=== PATIENT | male | born 1945 | race Caucasian/White ===

== ENCOUNTER → 2016-06-04 | Outpatient (CLI) | payer MEDICARE, OTHER ==
[2016-04-17 09:31] VITALS: BP 99/78
[~2016-06-04] MED LIST: FERR-26 PO; GINK60CA7 PO; HYDR-971 PO; NAPR220T70 PO; OMEG1CAP16 PO; OXYC-323 PO; WARF1TAB PO; ZINC30CA PO; [UNRECOGNIZED DRUG - CODE] PO
--- NOTE | 2016-06-04 18:59 | CARD ---
APPROVED REPORT EXAM: Two-dimensional and M-mode echocardiogram with Doppler and color Doppler. Other Information Quality : GoodHR: 74bpm Rhythm : NSR INDICATION Arrhythmia 2D DIMENSIONS RVDd2.7 (2.9-3.5cm)Left Atrium(2D)3.4 (1.6-4.0cm) IVSd0.9 (0.7-1.1cm)Aortic Root(2D)3.3 (2.0-3.7cm) LVDd4.5 (3.9-5.9cm)LVOT Diameter2.3 (1.8-2.4cm) PWd1.0 (0.7-1.1cm)LVDs2.9 (2.5-4.0cm) FS (%) 35.0 %SV60.3 ml LVEF(%)65.0 (>50%) Aortic Valve AoV Peak Сергей.166.0cm/sLVOT Peak Сергей.106.7cm/s VICKI (VMAX)2.71cm2 Mitral Valve MV E Ghmqjmfr61.9cm/sMV E Peak Gr.3mmHg MV DECEL HUSN027xrNP A Wwrgubco91.3cm/s MV E Mean Gr.1mmHgE/A Ratio0.7 MV A [id number] Pulmonary Valve PV Peak Twpnnmnr614.6cm/s Pulmonary Vein S1 Grjlwkbc68.6cm/sD2 Qblkqjgp53.8cm/s PVa qboapdwz60knox LEFT VENTRICLE The left ventricle is normal size. There is normal left ventricular wall thickness. The left ventricu lar systolic function is normal and the ejection fraction is within normal range. The left ventricula r global ejection fraction was estimated to be 65% There is normal LV segmental wall motion. Tissue D oppler imaging reveals mild left ventricular diastolic dysfunction. RIGHT VENTRICLE The right ventricle is normal size. There is normal right ventricular wall thickness. The right ventr icular systolic function is normal. ATRIA The left atrium size is normal. The right atrium size is normal. The interatrial septum is intact wit h no evidence for an atrial septal defect or patent foramen ovale as noted on 2-D or Doppler imaging. AORTIC VALVE The aortic valve is mildly sclerotic. The aortic valve is trileaflet. Doppler and Color Flow revealed no significant aortic regurgitation. There is no significant aortic valvular stenosis. MITRAL VALVE The mitral valve leaflets are thickened. There is no mitral valve stenosis. Doppler and Color Flow re vealed no mitral valve regurgitation noted. TRICUSPID VALVE The tricuspid valve is normal in structure Doppler and Color Flow revealed trace tricuspid regurgitat ion. There is no tricuspid valve stenosis. PULMONIC VALVE The pulmonary valve is normal in structure Doppler and Color Flow revealed trace pulmonic valvular re gurgitation. There is no pulmonic valvular stenosis. GREAT VESSELS The aortic root is normal in size. The ascending aorta is Mildly dilated. The pulmonary artery is nor mal. The IVC is normal in size and collapses >50% with inspiration. PERICARDIAL EFFUSION There is no pleural effusion. No significant pericardial effusion was seen Critical Notification Critical Value: No <Conclusion> The left ventricular systolic function is normal and the ejection fraction is within normal range. Th e left ventricular global ejection fraction was estimated to be 65% The left atrium size is normal. The right atrium size is normal. The aortic valve is mildly sclerotic. The aortic valve is trileaflet. The mitral valve leaflets are thickened. Doppler and Color Flow revealed no mitral valve regurgitation noted. Doppler and Color Flow revealed trace tricuspid regurgitation. Doppler and Color Flow revealed trace pulmonic valvular regurgitation. The ascending aorta is Mildly dilated. No significant pericardial effusion was seen
== END | disposition home or self-care (01) ==
LOC: ECHO 10:17
PROVIDERS: ATTEND Nurse Practitioner Adult Health
DX: C83.30 Diffuse large B-cell lymphoma, unspecified site (principal); I07.1 Rheumatic tricuspid insufficiency; I37.1 Nonrheumatic pulmonary valve insufficiency; I35.8 Other nonrheumatic aortic valve disorders; I77.819 Aortic ectasia, unspecified site
CPT/HCPCS: 93306

== ENCOUNTER 2016-06-13 06:41 | Day surgery (SDC) | payer MEDICARE, OTHER ==
[~2016-06-13] VITALS: Ht 165.1 cm; Wt 89.4 kg
[~2016-06-13 06:41] MED LIST changes: +ACETAMINOPHEN INTRAVENOUS 100 ML IV ONE; +ASCO500T2 PO; +BEE550CA PO; +CEFAZOLIN 2GM PREMIX 50 ML IV PRN; +GREE250C PO; +MAGN400C PO
[2016-06-13] MEDS ORDERED: MORPHINE SULFATE 2 MG/ML DISP.SYRIN. IV PRN (07:00)
[2016-06-13] MEDS ORDERED: LIDOCAINE 1% 1 ML SYRINGE. ID PRN (07:00)
[2016-06-13] MEDS ORDERED: IV RINGERS,LACTATED 1000ML 1,000 ML IV SCH (07:00)
[2016-06-13] MEDS ORDERED: ONDANSETRON PF 4 MG/2 ML VIAL. IV PRN (07:00)
[2016-06-13] MEDS ORDERED: PROCHLORPERAZINE 10 MG/2 ML VIAL. IV PRN (07:00)
[2016-06-13] MEDS ORDERED: FENTANYL PF 100 MCG/2 ML VIAL. IV PRN ×2 (07:00)
[2016-06-13] MEDS ORDERED: HYDROMORPHONE 2 MG/ML VIAL. IV PRN (07:00)
[2016-06-13] MEDS ORDERED: BUPIVACAINE 0.25% 50 ML VIAL. ONE (07:16)
[2016-06-13] MEDS ORDERED: HEPARIN for IV BOLUS 10,000 UNIT/10 ML VIAL. ONE (07:16)
[2016-06-13] MEDS ORDERED: HEPARIN PF 500 UNIT/5 ML DISP.SYRIN. IV ONE ×3 (07:16→07:17)
[2016-06-13] MEDS ORDERED: PROPOFOL 20 ML IV ONE ×2 (07:33→07:35)
[2016-06-13] MEDS ORDERED: MIDAZOLAM HCL 2 MG/2 ML VIAL. ONE (07:33)
[2016-06-13] MEDS ORDERED: FENTANYL PF 100 MCG/2 ML VIAL. ONE (07:33)
--- NOTE | 2016-06-13 08:40 | PDOC ---
BRIEF OPERATIVE NOTE Date: Jun 13, 2016 Pre-Op Diagnosis Lymphoma Post-Op Diagnosis Same Procedure Performed Port-a-cath Placement Surgeon Ebenezer Anesthesia Type: MAC Blood Loss 5ml Specimens Obtained None Findings As above Complications None MAMIE EDWARDS MD Jun 13, 2016 08:40
--- NOTE | 2016-06-13 08:41 | DISCH ---
DISCHARGE INSTRUCTIONS Condition on Discharge Condition on Discharge: Stable Activity After Discharge Activity Instructions for Disc: Activity as tolerated Diet after Discharge Diet after Discharge: Regular Wound Incision Care Other wound/incision instructi: May shower in 24 hours Contacting the after DC Call your doctor for: If your condition worsens Follow-Up Follow up with: Dr Edwards in 2 weeks MAMIE EDWARDS MD Jun 13, 2016 08:41
[2016-06-13] MEDS ORDERED: OXYC-323 PO (09:06)
[2016-06-13 09:26] VITALS: BP 136/71
--- NOTE | 2016-06-13 09:59 | OP ---
DATE OF SURGERY: 06/13/2016 PREOPERATIVE DIAGNOSIS: Lymphoma. POSTOPERATIVE DIAGNOSIS: Lymphoma. PROCEDURE: Port-A-Cath placement, left subclavian. SURGEON: Dave Edwards MD INDICATIONS: The patient is a 71-year-old gentleman who was recently diagnosed with lymphoma, needing long-term IV access for chemotherapy. Procedure of Port-A-Cath placement was explained to the patient in detail. Risks and benefits were also discussed including bleeding and infection. Alternatives of the procedure were also discussed with the patient who seemed to understand and gave verbal and written consent to have the procedure performed. DESCRIPTION OF PROCEDURE: The patient was taken to the operating room and placed in the supine position. IV sedation was initiated by anesthesia. Once the patient was appropriately sedated, his neck and chest were prepped and draped in the usual sterile fashion using ChloraPrep. An area over the deltopectoral groove on the left side was injected with 0.25% Marcaine plain. Once this was injected, incision was made with 15 blade scalpel. This was carried down through the subcutaneous tissues down to the cephalic vein, which was controlled proximally and distally with silk LigaSure. The vein was opened partially with 11 blade scalpel and a Seldinger wire was placed under fluoroscopy, which passed via the cephalic into subclavian, into the superior vena cava. At this point, the peel-away dilator was placed over the wire under fluoroscopy. The dilator was removed and the catheter was placed through the peel-away, which was then removed. The port was then attached to the catheter. A pocket was made in the anterior chest with blunt and sharp dissection. The port was then sewn into place with 3-0 Prolene. The port was then accessed, which showed good blood return and was easily flushed with heparin saline. The port was then packed with Hep-Lock of 5000 units per mL of 2 mL. The wound was then closed with 2 layers, deep layer with running 3-0 Vicryl and the skin was reapproximated with 4-0 subcuticular Monocryl. Mastisol, Steri-Strips, 4 x 4's and Medipore tape were applied as dressing. The patient was awakened from sedation and taken to recovery in stable condition. All sponge, instrument counts listed as correct. Estimated blood loss 5 mL. DAVE EDWARDS MD DR: ANNE MARIE/rossi JOB#: [id number] / [id number] MAHOGANY Castillo
== END 2016-06-13 09:55 | disposition home or self-care (01) ==
LOC: SURG 06:41
PROVIDERS: ATTEND Surgery
DX: C85.90 Non-Hodgkin lymphoma, unspecified, unspecified site (principal); E66.9 Obesity, unspecified; M19.90 Unspecified osteoarthritis, unspecified site; F10.99 Alcohol use, unspecified with unspecified alcohol-induced disorder; Z87.891 Personal history of nicotine dependence
CPT/HCPCS: 36556; J0131; J0690; J2250; J2704; J3010; J3490; A4215; C1788

== ENCOUNTER → 2016-08-20 | Outpatient (CLI) | payer OTHER ==
[~2016-08-20] MED LIST changes: -ACETAMINOPHEN INTRAVENOUS 100 ML IV ONE; -CEFAZOLIN 2GM PREMIX 50 ML IV PRN
--- NOTE | 2016-08-20 11:05 | CARD ---
APPROVED REPORT EXAM: Two-dimensional and M-mode echocardiogram with Doppler and color Doppler. Other Information Quality : GoodHR: 81bpm Rhythm : NSR INDICATION Post chemo treatment 2D DIMENSIONS RVDd2.6 (2.9-3.5cm)Left Atrium(2D)3.0 (1.6-4.0cm) IVSd1.0 (0.7-1.1cm)Aortic Root(2D)3.5 (2.0-3.7cm) LVDd5.2 (3.9-5.9cm)LVOT Diameter2.3 (1.8-2.4cm) PWd1.0 (0.7-1.1cm)LVDs3.4 (2.5-4.0cm) FS (%) 34.0 %SV81.7 ml LVEF(%)62.5 (>50%) LEFT VENTRICLE The left ventricle is normal size. There is normal left ventricular wall thickness. The left ventricu lar systolic function is normal and the ejection fraction is within normal range. The Ejection Fracti on is 60-65%. There is normal LV segmental wall motion. Left ventricular diastolic function was not a ssessed at exam time. RIGHT VENTRICLE The right ventricle is normal size. There is normal right ventricular wall thickness. The right ventr icular systolic function is normal. ATRIA The left atrium size is normal. The right atrium size is normal. The atrial septum was not assessed a t exam time. AORTIC VALVE The aortic valve is mildly sclerotic. The aortic valve is trileaflet. There is no significant aortic valvular stenosis. MITRAL VALVE Mitral annular calcification is mild. The mitral valve leaflets are thickened. There is no evidence o f mitral valve prolapse. There is no mitral valve stenosis. TRICUSPID VALVE The tricuspid valve is not well visualized. PULMONIC VALVE The pulmonic valve is not well visualized. GREAT VESSELS The aortic root is normal in size. The ascending aorta is normal in size. The IVC was not assessed at exam time. PERICARDIAL EFFUSION There is no evidence of significant pericardial effusion. Critical Notification Critical Value: No <Conclusion> The left ventricular systolic function is normal and the ejection fraction is within normal range. Th e Ejection Fraction is 60-65%. There is normal LV segmental wall motion.
== END | disposition home or self-care (01) ==
LOC: ECHO 07:42
PROVIDERS: ATTEND Internal Medicine Hematology & Oncology
DX: C83.30 Diffuse large B-cell lymphoma, unspecified site (principal); T14.8 Other injury of unspecified body region
CPT/HCPCS: 93308

== ENCOUNTER → 2016-08-28 | Outpatient (CLI) | payer OTHER ==
--- NOTE | 2016-08-28 11:34 | RAD ---
EXAM: Dual modality PET/CT. HISTORY: Lymphoma restaging. TECHNIQUE: PET images of the body were obtained from the skull base to the proximal thighs following the intravenous administration of 12.2 mCi F 18 fluorodeoxyglucose (FDG).. CT images were obtained for attenuation correction purposes. The blood glucose prior to tracer administration was 105 mg/dL. One or more of the following individualized dose reduction techniques were utilized for this examination: 1. Automated exposure control. 2. Adjustment of the mA and/or kV according to patient size. 3. Use of iterative reconstruction technique. COMPARISON: 05/15/2016. FINDINGS: There is increased tracer activity maximum SUV of 5.0 posterior to the right glenohumeral joint, likely degenerative/inflammatory in etiology. There is increased tracer activity within the vocal cords, likely physiologic in etiology. There is tracer activity within maximum SUV of 2.6 within a nonenlarged right paratracheal lymph node. There is diffusely heterogeneous activity within the liver and vertebral bodies. There is expected activity within the renal collecting system. There has been significant interval decrease in the size and radiotracer activity associated with left iliac and inguinal lymph nodes compared to the prior study. The residual lymph nodes nodes demonstrate a maximum SUV of 2.7. There is mild activity around the periphery of a 3.8 cm left inguinal lesion, likely a treated lymph node or seroma status post lymph node biopsy. The CT portion of the exam demonstrates mild cardiomegaly and ectasia of the aortic arch. No pathologically enlarged mediastinal or hilar lymph node is seen. There are left maxillary sinus mucous retention cysts. There is posterior dependent atelectasis. There are few calcified granulomas. There is a 9 mm pleural-based nodule along the anterior right upper thorax and focal pleural thickening or an elongated pleural-based nodule measuring 2.1 cm along the anterior superior right thorax. There is also a 1.7 cm pleural-based nodular opacity within the posterior inferior left thorax. No hepatic lesion is seen. The collar, pancreas, spleen and adrenal glands are unremarkable. There are punctate nonobstructing renal stones. No abnormally thickened or dilated loop of bowel is seen. There is distal colonic diverticulosis without diverticulitis. There is urinary bladder wall thickening. There is prostatomegaly. There is stranding throughout the root of the mesentery. No pathologically enlarged lymph node is seen. There are pars defects with associated anterolisthesis at the lumbosacral junction. There are few benign bone islands. No suspicious osseous lesion is seen. IMPRESSION: 1. Significant interval therapy response. The previously demonstrated radiotracer avid left iliac and inguinal lymph nodes are now within normal lives in size and demonstrate a maximum SUV of 2.7. There is no evidence of progressive neoplasm. 2. Stable increased activity posterior to the right glenohumeral joint, likely degenerative/inflammatory in etiology. There is also suspected physiologic activity within the vocal cords. 3. Diffusely heterogeneous activity throughout the vertebral column. There is no CT correlate. This can be seen with bone marrow stimulation agents. 4. Multiple pleural-based nodular opacities within the right thorax, stable in appearance. The absence of increased tracer activity and stability favors benignity. However, continued attention at the time of follow-up is recommended. 5. Please refer to the findings section of the report for additional non-PET findings.
== END | disposition home or self-care (01) ==
LOC: PETSC 07:51
PROVIDERS: ATTEND Internal Medicine Hematology & Oncology
DX: C83.30 Diffuse large B-cell lymphoma, unspecified site (principal); T14.8 Other injury of unspecified body region
CPT/HCPCS: 78815; A9552

== ENCOUNTER → 2017-01-01 | Outpatient (CLI) | payer OTHER ==
[~2017-01-01] MED LIST changes: -OMEG1CAP16 PO; +OMEG1CAP27 PO; -WARF1TAB PO; +WARF1TAB74 PO
--- NOTE | 2017-01-01 14:01 | RAD ---
EXAM: PET/CT SKULL BASE TO MID THIGH. HISTORY: Restage lymphoma. COMPARISON: PET CT August 28, 2016, 05/15/2016. None. TECHNIQUE: CT was performed from the skull base through the mid thighs for the purposes of attenuation correction. 14.2 mCi F-18 fluorodeoxyglucose (FDG) was administered intravenously. After an uptake period, positron emission tomography was performed from the skull base through the mid thighs. The PET and CT data were fused and interpreted in combination a dedicated workstation. Blood glucose level was 102 mg/dL at the time of FDG administration. FINDINGS: Mediastinal blood pool: 2.7 SUV. Mean hepatic: 3.7 SUV. Head/neck: No suspicious hypermetabolic mass or lymphadenopathy. Chest: No suspicious hypermetabolic mass or lymphadenopathy. Abdomen and pelvis: There is physiologic activity in both kidneys and renal collecting system. There is a stable left internal fluid collection measuring up to 3.6 cm with no associated FDG uptake. No suspicious hypermetabolic mass or lymphadenopathy. Uncorrected PET images: No additional finding. Additional CT findings: Noncalcified and calcified bilateral pleural plaques. Left subclavian chest port with distal tip terminating in the upper SVC. There is a 2 mm nonobstructive calculus in the superior pole of the right kidney. Abdominal aorta is normal in caliber with mild iliac calcified atheromatous disease. There is mild distal clonic diverticulosis. There is mild prostate enlargement which indents the base of the urinary bladder. There is mild circumferential urinary bladder wall thickening. IMPRESSION: No hypermetabolic lymphadenopathy in the neck, chest, abdomen or pelvis to suggest active lymphomatous involvement.
== END | disposition home or self-care (01) ==
LOC: PETSC 07:29
PROVIDERS: ATTEND Internal Medicine Hematology & Oncology
DX: C83.30 Diffuse large B-cell lymphoma, unspecified site (principal); N20.0 Calculus of kidney; K57.30 Diverticulosis of large intestine without perforation or abscess without bleeding; N40.0 Benign prostatic hyperplasia without lower urinary tract symptoms; J92.9 Pleural plaque without asbestos
CPT/HCPCS: 78815; A9552

== ENCOUNTER → 2017-01-26 | Day surgery (SDC) | payer OTHER ==
[~2017-01-26] MED LIST changes: +GINK30CA PO; -GINK60CA7 PO; +LIDOCAINE 1%/EPI 1:100,000 20 ML VIAL. INJ ONE; +LIDOCAINE 1%/EPI 1:100,000 20 ML VIAL. ONE
[2017-01-26 10:45] VITALS: BP 149/83
--- NOTE | 2017-01-26 17:51 | PATHOLOGY ---
PATHOLOGY REPORT * * * * * * * * FINAL DIAGNOSIS: Ruperto cath (Gross only). (JPM:mgr; 01/26/2017) REPORT ELECTRONICALLY SIGNED BY: Masoud Carlos M.D. DATE/TIME: 01/26/2017 17:51 * * * * * * * * GROSS PATHOLOGY: The specimen is received fresh, designated " Humza Almazan ruperto danay" and consists of a triangular shaped metallic purple port that measures 2.7 x 2.3 x 1.5 cm. The central portion of the triangular port contains, soft, pliable rubbery material measuring up to 1.5 cm in diameter. At the base of the port there is a schwartz white, tubular structure that measures 22cm in length and 0.3 cm in diameter. The end of the tubing is patent. The back surface of the metallic port bears the inscription "BARD [id number]". No sections are submitted. (JPM; 01/26/17) INITIAL CPT CODE(S): A; 31449 Professional services [place] [facility] [place] [address] Technical services performed by [facility] at [address] [place] [address] [address], [place] [address]. SPECIMEN(S) RECEIVED: A.Ruperto cath CLINICAL HISTORY: Ruperto cath removal PATIENT: HUMZA ALMAZAN /AGE: 10 1945 (Age: 71) PATIENT #: [id number] ALT CASE #: SPECIMEN COLLECTION DATE: 01/26/2017 SPECIMEN RECEIVED DATE: 01/26/2017 [facility] - [address] [place] [address] - PHONE: [phone] * * * END OF REPORT * * *
--- NOTE | 2017-02-12 11:11 | PDOC4 ---
Operative Note Operative Note Date: 01/26/2017 Preoperative diagnosis: Left chest Port-A-Cath Postoperative diagnosis: Same Procedure: Removal of Port-A-Cath Surgeon: Ebenezer Specimen: Port-A-Cath Dictation: 71-year-old male with history of lymphoma have been currently being treated with chemotherapy has completed his chemotherapy and now is wanting removal of his Port-A-Cath. Procedure removal Port-A-Cath was explained to the patient in detail was benefits were also discussed including bleeding and infection alternatives to this procedure also discussed with the patient seemed understanding gave both verbal and written consent have the procedure performed. Patient was taken to the minor was room placed in the supine position the area of his Port-A-Cath on left chest was prepped and draped usual sterile fashion using ChloraPrep and area over the Port-A-Cath was injected with quarter percent Marcaine with epinephrine and incision was made with a 15 blade scalpel this was carried down through the subcutaneous tissues down to the port the suture holding the Port-A-Cath in place were cut with Metzenbaum scissors and the Port-A-Cath was removed. Wound was then closed in 2 layers a deep layer running 3-0 Vicryl and the skin was approximate 4 subcuticular Monocryl Mastisol Steri-Strips and island dressing were applied. He tolerated procedure well was discharged home in stable condition all sponge instrument and needle counts listed as correct estimated blood loss less than 5 mL. MAMIE EDWARDS MD Feb 12, 2017 11:11
== END | disposition home or self-care (01) ==
LOC: SURG 10:01
PROVIDERS: ATTEND Surgery
DX: Z45.2 Encounter for adjustment and management of vascular access device (principal); E66.9 Obesity, unspecified; Z68.45 Body mass index [BMI] 70 or greater, adult; M17.12 Unilateral primary osteoarthritis, left knee; M17.11 Unilateral primary osteoarthritis, right knee; Z96.651 Presence of right artificial knee joint; Z87.39 Personal history of other diseases of the musculoskeletal system and connective tissue; Z72.89 Other problems related to lifestyle
CPT/HCPCS: 36590; 88300; J3490

== ENCOUNTER → 2017-02-16 | Outpatient (CLI) | payer OTHER ==
[2017-01-26 10:45] VITALS: BP 149/83
[~2017-02-16] MED LIST changes: -LIDOCAINE 1%/EPI 1:100,000 20 ML VIAL. INJ ONE; -LIDOCAINE 1%/EPI 1:100,000 20 ML VIAL. ONE
--- NOTE | 2017-02-16 14:34 | EKG ---
[facility] [address] [place] [address] Test Date: 2017-02-16 Test Time: 14:38:09 Pat Name: JULIAN GARCIA Department: Room: Gender: Field Instructor: SYLVIA : 1945 Requested By: SHAHEED DWYER Order Number: [id number] Reading MD: Nina George Measurements Intervals [place] Rate: 69 P: 28 TN: 174 QRS: -52 QRSD: 92 T: 33 QT: 394 QTc: 424 Interpretive Statements sinus rhythmLEFT ANTERIOR FASCICULAR BLOCK NORMAL ECG RI6.01 Compared to ECG 07/31/2014 12:07:14 Left-axis deviation now present Left anterior fascicular block now present Electronically Signed On 02-17-2017 20:17:56 CDT by Nina George
--- NOTE | 2017-02-16 15:23 | RAD ---
Indication preop. Anticipated knee replacement. Frontal and lateral views of the chest were obtained and are compared to an examination 07/31/2014. Heart size and pulmonary vessels are within normal limits. A somewhat tortuous thoracic aorta is noted similar to the previous exam. There is no consolidated pneumonia significant pleural fluid collection or pneumothorax. There has not been a significant change in the appearance of the chest compared to the previous exam. IMPRESSION: No acute or focal process. No significant change
== END | disposition home or self-care (01) ==
LOC: SURGPAT 12:47
PROVIDERS: ATTEND Orthopaedic Surgery
DX: Z01.818 Encounter for other preprocedural examination (principal); I44.4 Left anterior fascicular block
CPT/HCPCS: 71020; 87641; 93005

== ENCOUNTER 2017-03-03 05:38 | Inpatient (IN) | payer OTHER ==
--- NOTE | 2017-03-02 10:17 | PDOC1 ---
History and Physical Date of Admission Date of Admission DATE: 03/03/17 Identification/Chief Complaint Chief Complaint left knee osteoarthritis pain Problems: Source Source: Chart review History of Present Illness History of Present Illness The patient is a 71 year old male with left knee pain. He started an Orthovisc series in April 2016 but never finished it. His pain has been worse since then and he would like to proceed with total knee arthroplasty. His left knee pain is now affecting his daily life. Last year he had a cluster of cancerous lymph nodes removed, underwent chemotherapy and radiation, and states his last PET scan was clear. He has a history of right total knee arthroplasty and states it is doing very well. Past Medical History Cardiovascular: No pertinent hx Pulmonary: No pertinent hx GI: No pertinent hx Heme/Onc: Cancer (lymph nodes) Hepatobiliary: No pertinent hx Psych: No pertinent hx Rheumatologic: No pertinent hx Infectious disease: No pertinent hx Renal/: No pertinent hx Endocrine: No pertinent hx Past Surgical History Past Surgical History: Total knee replacement (right ), Other (cancerous lymph nodes removed) Family History Family History: Cancer, Diabetes Social History Smoke: Quit ALCOHOL: rare Drugs: None Current Medications Current Medications Active Scripts Active Reported Bee Pollen 550 Mg Capsule 550 Mg PO DAILY Ginkgo Biloba (Ginkgo Biloba [place] Extract) 30 Mg Capsule 30 Mg PO DAILY Allergies Allergies: Coded Allergies: No Known Drug Allergies (Unverified , 02/16/17) Physical Exam General: Alert, Oriented X3, Cooperative, No acute distress HEENT: Atraumatic, EOMI Lungs: Normal air movement Heart: RRR Abdomen: Soft Extremities: No clubbing, No cyanosis, Normal pulses, Other (LEFT KNEE: mildly antalgic gait. There is varus alignment. No masses. No detectable effusion. Tenderness on the medial and lateral joint lines. Range of motion is 5-115 degrees. There is crepitus with range of motion, and pain at the extremes of motion. The knee is stable to varus and valgus stress without subluxation or laxity. Muscle strength is normal (5/5) for quadriceps and hamstrings, and muscle tone is normal. The skin is normal with no scars, rashes, lesions or ulcers. Light touch sensation is intact. No edema and no varicosities. Dorsalis pedis pulse is intact and capillary refill is normal. ) Skin: No rashes, No breakdown, No significant lesion Neuro: Normal speech, Sensation intact Psych/Mental Status: Mental status NL, Mood NL Images Images IMAGING REPORT Joint survey, hips knees and ankles Clinical information: Preoperative for total knee arthroplasty Comparison: None. Findings Bones: The angle between the right hip-ankle mechanical axis and the femoral shaft is 5. The angle between the left hip-ankle mechanical axis and the femoral shaft is 5 . The mechanical axis crosses near the center of the right knee indicating proper mechanical alignment. The mechanical axis crosses medial to the center of the left knee indicating varus alignment. Joints: There is a total knee arthroplasty on the right knee. The left knee joint shows severe narrowing and sclerosis medially. Both hips show mild to moderate degenerative changes, and cam deformity of the femoral heads. The knee arthritis in the left knee appears worse than the hip arthritis. Soft tissue: Normal. Impression: Varus alignment of the left knee. Normal mechanical alignment of the right prosthetic knee. The difference between the mechanical axis and femoral shaft anatomic axis is 5 bilaterally VTE Prophylaxis Ordered VTE Prophylaxis Devices: Yes VTE Pharmacological Prophylaxi: Yes Assessment/Plan Assessment/Plan His left knee has gotten progressively worse. I recommended that he consider total knee arthroplasty. We discussed the potential risks of infection, neurovascular injury, bleeding, blood clots, need for revision surgery, or other potential surgical or anesthetic complications. The patient would like to proceed with left total knee arthroplasty in early March. ABDIAZIZ NUNEZ Mar 02, 2017 10:17
[~2017-03-03] VITALS: Ht 170.2 cm; Wt 89.5 kg
[2017-03-03] VITALS (12 sets, daily range): BP systolic 78–149; BP diastolic 49–80
[2017-03-03] MEDS ORDERED: VANCOMYCIN 1 GM VIAL. ONE (05:53)
[2017-03-03] MEDS ORDERED: TRANEXAMIC ACID 1,000 MG in IV NS 50ML -- 1ST BAG INJ ONE (06:00)
[2017-03-03] MEDS ORDERED: CELECOXIB 200 MG CAPSULE. PO PRN (06:00)
[2017-03-03] MEDS ORDERED: MORPHINE SULFATE 5 MG, KETOROLAC 30 MG, ROPIVacaine 0.5% PF 60 ML, EPINEPHrine 0.5 MG i... INT ART ONE ×5 (06:00)
[2017-03-03] MEDS ORDERED: HYDROcodone/APAP 7.5/325MG 1 TAB TABLET PO PRN (06:00)
[2017-03-03 06:53] LABS: PROTHROMBIN TIME PATIENT 12.2 SEC (11.7-14.0)
[2017-03-03] MEDS ORDERED: FAMOTIDINE 20 MG/2 ML VIAL ONE (06:57)
[2017-03-03] MEDS ORDERED: LIDOCAINE 2% PF Vial for OR 5 ML VIAL. ONE (06:57)
[2017-03-03] MEDS ORDERED: ONDANSETRON PF 4 MG/2 ML VIAL. ONE (06:57)
[2017-03-03] MEDS ORDERED: SEVOFLURANE 61 TO 120 MINUTES. IH ONE ×2 (06:57→06:58)
[2017-03-03] MEDS ORDERED: PROPOFOL 20 ML IV ONE (06:57)
[2017-03-03] MEDS ORDERED: DEXAMETHASONE SOD PHOS 20 MG/5 ML VIAL. ONE (06:57)
[2017-03-03] MEDS ORDERED: MORPHINE SULFATE 2 MG/ML DISP.SYRIN. IV PRN (07:00)
[2017-03-03] MEDS ORDERED: IV RINGERS,LACTATED 1000ML 1,000 ML IV SCH (07:00)
[2017-03-03] MEDS ORDERED: PROCHLORPERAZINE 10 MG/2 ML VIAL. IV PRN ×2 (07:00→09:45)
[2017-03-03] MEDS ORDERED: MIDAZOLAM HCL/PF 2 MG/2 ML VIAL. ONE (07:00)
[2017-03-03] MEDS ORDERED: ROCURONIUM 100 MG/10 ML VIAL. ONE (07:00)
[2017-03-03] MEDS ORDERED: HYDROmorphone 2 MG/ML VIAL IV PRN (07:00)
[2017-03-03] MEDS ORDERED: fentaNYL PF VIAL 100 MCG/2 ML VIAL IV PRN ×4 (07:00→09:45)
[2017-03-03] MEDS ORDERED: fentaNYL PF VIAL 100 MCG/2 ML VIAL ONE (07:00)
[2017-03-03] MEDS ORDERED: ONDANSETRON PF 4 MG/2 ML VIAL. IV PRN (07:00)
[2017-03-03] MEDS ORDERED: LIDOCAINE 1% PF 2 ML VIAL. ID PRN (07:00)
[2017-03-03] MEDS ORDERED: 0.9 % SODIUM CHLORIDE 50 ML VIAL. IJ ONE (07:46)
[2017-03-03] MEDS ORDERED: MORPHINE SULFATE 10 MG/ML VIAL. ONE (07:48)
[2017-03-03] MEDS ORDERED: TRANEXAMIC ACID 1,000 MG in IV NS 50ML -- 2ND BAG INJ ONE (08:00)
[2017-03-03] MEDS ORDERED: GLYCOPYRROLATE 1 MG/5 ML VIAL. ONE (09:02)
--- NOTE | 2017-03-03 09:21 | PDOC4 ---
Operative Note Operative Note Date of Procedure: March 03, 2017 Pre-Op Diagnosis: Osteoarthritis left knee Post-Op Diagnosis: Osteoarthritis left knee Procedure: left total knee arthroplasty Surgeon: Shaheed Lazaro MD Fashion Design Professor: Natalia Weinstein PA-C Anesthesia: General EBL: 100 mL Specimens Obtained: left knee bone and soft tissue Complications: none Implant Company: [employer] Drains: Hemovac plus pain catheter Tourniquet time: 51 Minutes Tourniquet Pressure: 350 mm Hg Indications for Procedure: Arthritis pain unrelieved by nonoperative management. Findings: Severe osteoarthritis with bone on bone contact medially and at the patellofemoral joint Implants used: Size 5 left bicruciate stabilized Journey II BCS cobalt chrome femoral component, size 5 left Journey nonporous tibial baseplate, size 5 -6 18 mm constrained left Journey II BCS XLPE articular insert, 35 mm oval Lisa II resurfacing patellar component Procedure in Detail: The patient was identified in the preoperative holding area, and the correct left lower extremity was marked by me. The patient was taken to the operating room where the patient was anesthetized by the Department of Anesthesia. Preoperative antibiotics were given intravenously. Tranexamic acid 1 g was given intravenously for intraoperative hemostasis. A "time-out" procedure was performed. The patient was positioned supine on the operative table with a tourniquet on the upper left thigh. The left lower limb was thoroughly prepped and draped in sterile fashion. An impervious stockinet and adhesive drape were used such that the skin was entirely covered. An Disla leg chapman was used. The operating team wore personal exhaust-ventilated hoods. The limb was elevated to exsanguinate it, and the tourniquet was inflated.. A midline skin incision was made with a scalpel using the patella and tibial tubercle as landmarks. Electrocautery was used for hemostasis. My field administrative assistant used rake retractors. A medial parapatellar arthrotomy incision was used with extension into the distal quadriceps tendon. The patella was retracted laterally and Hohmann retractors were now used by my field administrative assistant. Excess synovium, the menisci, and the cruciate ligaments were resected sharply. The patella was assessed and excess synovium and osteophytes around the patellar articulation were removed. The patella was measured with a caliper, cut freehand with a saw using caliper measurements, sized, and then drilled for an oval three-pegged patella component. Periarticular injection was used in the suprapatellar pouch and distal quadriceps muscle. Whitesides's line was assessed on the femur. An intra-medullary 5 degree cutting guide was pinned to the femur, and a distal femoral cut was made with an oscillating saw. An additional 4 mm resection was used due to the deep femoral sulcus, and deficient femoral condyle.My field administrative assistant held Hohmann retractors and an Army-Pomeroy retractor to protect the medial and lateral collateral ligaments, the patellar tendon, the skin and the other soft tissues. An anterior referencing guide was applied with external rotation of 3 to match Whitesides line. A 5-in-1 Journey II cutting guide was then applied and pinned to the femur. The posterior, anterior, and all chamfer cuts were made with the oscillating saw. An extramedullary guide was pinned to the tibia and rotational alignment and the planned resection thickness assessed. An external alignment galina was used to verify the planned cut in the varus-valgus plane and regarding posterior slope referencing the tibial tubercle, the tibial shaft, the ankle joint, and the second metatarsal. The upper tibia was cut made with an oscillating saw. My field administrative assistant held Hohmann retractors and a posterior cruciate ligament retractor to protect the medial and lateral collateral ligaments, the patellar tendon, the skin, the peroneal nerve and the other soft tissues. The upper tibia was sized with a trial baseplate. The posterior compartment was cleared of osteophytes and loose bodies, and posterior capsule released. Zeinab-articular injection was used in the posterior compartment. The box cut for a posterior stabilized component was made. A preliminary reduction was performed with a trial femur, trial tibial baseplate and trial polyethylene. Soft-tissue balancing was now performed, and extension and rotation of the alignments was checked using a guide galina in the tibial trial and a guide pin in the femur. A medial release was required, using a 10 blade scalpel, and a Benavides elevator to elevate the medial structures from the upper medial tibia. The stability was assessed using different thicknesses of tibial articular surface to find satisfactory stability and good range of motion. The rotation of the tibial component was marked on the upper tibia. Final trial reduction was now performed verifying patella tracking and tibiofemoral stability and alignment. The tibia preparation was completed with a drill, saw, and fin punch at the previously noted rotation. The final implants were verified and opened. Outer gloves were changed by the operating team. The bone cuts were washed thoroughly with the [place] InterPulse device and dried. Two packages of Bruce + Nephew Rally MV bone cement were mixed in powdered form with 1 gm of Vancomycin, then vacuum-mixed with the monomer, and placed into a cement gun. The cut surfaces of the bone were thoroughly dried with Cartagena-tip suction and with laparotomy sponges for cement interdigitation. The final components were cemented into place. The knee was kept at full extension while the cement hardened, and excess cement was removed. Tranexamic acid 1 g was redosed intravenously for additional intraoperative hemostasis. A final periarticular injection was used for pain relief. The tourniquet was released, and electrocautery was used for hemostasis. A final check of [id number] and stability was made, and the polyethylene implant final size was chosen. The polyethylene implant was secured to the tibial baseplate, and the knee was reduced a final time. Thorough irrigation was used. Hemovac and pain catheter were used.The arthrotomy was closed with interrupted [id number] #1 PDS suture. The arthrotomy incision was then run with #1 STRATAFIX Symmetric PDS Plus Knotless suture. The subcutaneous tissues were closed with #2-0 Vicryl by my field administrative assistant. The skin was approximated with STRATAFIX Spiral MONOCRYL Plus Knotless suture by my field administrative assistant. The skin incision was then covered and reinforced with Dermabond Prineo mesh skin closure dressing. A bulky sterile gauze dressing was applied. Needle and sponge counts were correct. There were no apparent complications. The patient returned to the recovery room in stable condition. SHAHEED LAZARO MD Mar 03, 2017 09:21
[2017-03-03] MEDS ORDERED: DESFLURANE > 120 MINUTES IH ONE (09:24)
[2017-03-03] MEDS ORDERED: MORPHINE SULFATE 10 MG/ML VIAL. IV PRN (09:45)
[2017-03-03] MEDS ORDERED: PROCHLORPERAZINE 5 MG TABLET. PO PRN (09:45)
[2017-03-03] MEDS ORDERED: MORPHINE SULFATE 4 MG/ML DISP.SYRIN. IV PRN ×3 (09:45)
[2017-03-03] MEDS ORDERED: HYDROcodone/APAP 10/325 1 TAB TABLET PO PRN (09:45)
[2017-03-03] MEDS ORDERED: ACETAMINOPHEN 325 MG TABLET. PO PRN (09:45)
[2017-03-03] MEDS ORDERED: CALCIUM CARBONATE 500 MG TAB.CHEW PO PRN (09:45)
[2017-03-03] MEDS ORDERED: 0.9 % SODIUM CHLORIDE 10 ML DISP.SYRIN. IV PRN (09:45)
[2017-03-03] MEDS ORDERED: traMADol 50 MG TABLET PO PRN ×2 (09:45)
[2017-03-03] MEDS ORDERED: METOCLOPRAMIDE HCL 10 MG/2 ML VIAL. IV PRN (09:45)
[2017-03-03] MEDS ORDERED: oxyCODONE/APAP 5/325 1 TAB TABLET PO PRN (09:45)
[2017-03-03] MEDS ORDERED: diphenhydrAMINE 50 MG/ML VIAL IV PRN (09:45)
[2017-03-03] MEDS ORDERED: ZOLPIDEM 5 MG TABLET. PO PRN (09:45)
[2017-03-03] MEDS ORDERED: DEXTROSE 50% 25 GM / 50ML DISP.SYRIN. IV PRN (09:45)
[2017-03-03] MEDS ORDERED: oxyCODONE/APAP 7.5/325 1 TAB TABLET PO PRN (09:45)
[2017-03-03] MEDS: MULTIVITAMIN with MINERAL TABLET. PO SCH (10:00)
[2017-03-03] MEDS: CELECOXIB 200 MG CAPSULE. PO SCH ×2 (10:00→21:28)
--- NOTE | 2017-03-03 10:25 | RAD ---
Knee x-rays Indication: Postop left knee Technique: AP and lateral views of the left knee Comparison: None Findings: Status post total left knee arthroplasty. There is no periprostatic lucencies. The anatomic alignment of the knee joint is within normal limits. Surgical drain is seen with its tip within knee joint. Postsurgical soft tissue emphysema noted. No acute fractures. Impression: Post surgical changes from total left knee arthroplasty.
[2017-03-03] MEDS: IV DEXTROSE 5 %-0.45 % NACL 1,000 ML IV SCH ×2 (14:40→19:36)
[2017-03-03] MEDS: SENNOSIDES/DOCUSATE 8.6/50MG TABLET. PO SCH (17:20)
[2017-03-03] MEDS: FERROUS SULFATE 325 MG TABLET. PO SCH (17:20)
[2017-03-03] MEDS: KETOROLAC 30 MG, BUPIVACAINE MPF 0.25% 20 ML, EPINEPHrine 0.5 MG in TOTAL VOLUME SYRING... INT ART SCH (17:21)
[2017-03-03] MEDS: TAMSULOSIN 0.4 MG CAP.ER.24H. PO SCH (21:28)
[2017-03-03] MEDS: ASPIRIN ENTERIC COATED 325 MG TABLET.DR. PO SCH (21:28)
[2017-03-03] MEDS: HYDROcodone/APAP 7.5/325MG 1 TAB TABLET PO PRN (21:29)
[2017-03-04 02:59] VITALS: BP 125/76
[2017-03-04] MEDS: IV DEXTROSE 5 %-0.45 % NACL 1,000 ML IV SCH (05:15)
[2017-03-04] MEDS ORDERED: MAGNESIUM HYDROXIDE 2,400 MG/30 ML ORAL.SUSP. PO PRN (06:00)
[2017-03-04 06:17] VITALS: BP 121/67
[2017-03-04] MEDS: KETOROLAC 30 MG, BUPIVACAINE MPF 0.25% 20 ML, EPINEPHrine 0.5 MG in TOTAL VOLUME SYRING... INT ART SCH (06:20)
[2017-03-04 06:35] LABS: HEMATOCRIT 38.6 % (39.0-53.0); HEMOGLOBIN 13.1 g/dL (13.0-17.5)
[2017-03-04] MEDS: HYDROcodone/APAP 7.5/325MG 1 TAB TABLET PO PRN ×3 (08:37→20:57)
[2017-03-04] MEDS: MULTIVITAMIN with MINERAL TABLET. PO SCH (08:37)
[2017-03-04] MEDS: SENNOSIDES/DOCUSATE 8.6/50MG TABLET. PO SCH (08:37)
[2017-03-04] MEDS: FERROUS SULFATE 325 MG TABLET. PO SCH ×2 (08:37→17:18)
[2017-03-04] MEDS: ASPIRIN ENTERIC COATED 325 MG TABLET.DR. PO SCH ×2 (08:37→20:56)
[2017-03-04] MEDS: CELECOXIB 200 MG CAPSULE. PO SCH ×2 (08:37→20:56)
--- NOTE | 2017-03-04 09:43 | PDOC ---
PROGRESS NOTES Subjective Subjective No complaints Objective Vital Signs Vital Signs Date Time Temp Pulse Resp B/P (MAP) Pulse Ox O2 Delivery O2 Flow Rate FiO2 03/04/17 08:37 16 Room Air 03/04/17 06:17 98.0 78 121/67 (85) 94 98.0 03/03/17 11:32 2.0 Physical Exam Dressing dry. Pain catheter and Hemovac in place. Good dorsiflexion and plantarflexion of the foot with no evidence of neurovascular injury or DVT. Calves are soft and non-tender. Negative Homans. Peripheral pulses and light touch sensation intact. Labs Laboratory Tests Test 03/03/17 06:00 03/04/17 06:12 Prothrombin Time 12.2 SEC (11.7-14.0) Prothromb Time International Ratio 1.0 (0.8-1.1) Hemoglobin 13.1 g/dL (13.0-17.5) Hematocrit 38.6 % (39.0-53.0) Mean Corpuscular Hemoglobin Concent 34 g/dL (31-37) Laboratory Tests Test 03/04/17 06:12 Hemoglobin 13.1 g/dL (13.0-17.5) Hematocrit 38.6 % (39.0-53.0) Mean Corpuscular Hemoglobin Concent 34 g/dL (31-37) Imaging Postoperative x-rays reviewed by me, showing satisfactory total knee replacement , with no apparent complications Report reviewed which follows: [facility] [address] [place] [address] IMAGING REPORT Signed PATIENT: JULIAN GARCIA ACCOUNT: [id number] : 1945 LOCATION: [facility] AGE: 72 SEX: M EXAM STATUS: ADM IN ORD. PHYSICIAN: ABDIAZIZ NUNEZ REASON: POST OP PROCEDURE: KNEE LEFT 2V Knee x-rays Indication: Postop left knee Technique: AP and lateral views of the left knee Comparison: None Findings: Status post total left knee arthroplasty. There is no periprostatic lucencies. The anatomic alignment of the knee joint is within normal limits. Surgical drain is seen with its tip within knee joint. Postsurgical soft tissue emphysema noted. No acute fractures. Impression: Post surgical changes from total left knee arthroplasty. DICTATED and SIGNED BY: MÓNICA ANDREA DO DATE: 03/03/17 1015 Assessment Assessment POD #1 TKA Problems: Plan Plan of Care Continue POC including DVT prophylaxis and physical therapy SHAHEED DWYER MD Mar 04, 2017 09:43
[2017-03-04] MEDS ORDERED: BISACODYL 10 MG SUPP.RECT. PR PRN (16:00)
[2017-03-04 18:18] VITALS: BP 126/64
[2017-03-04 19:19] VITALS: BP 132/67
[2017-03-04] MEDS: TAMSULOSIN 0.4 MG CAP.ER.24H. PO SCH (20:56)
[2017-03-05 05:04] LABS: HEMATOCRIT 35.4 % (39.0-53.0); HEMOGLOBIN 11.9 g/dL (13.0-17.5)
[2017-03-05 05:50] VITALS: BP 120/65
[2017-03-05] MEDS: FERROUS SULFATE 325 MG TABLET. PO SCH ×2 (08:21→16:48)
[2017-03-05] MEDS: ASPIRIN ENTERIC COATED 325 MG TABLET.DR. PO SCH ×2 (08:21→20:19)
[2017-03-05] MEDS: MULTIVITAMIN with MINERAL TABLET. PO SCH (08:21)
[2017-03-05] MEDS: SENNOSIDES/DOCUSATE 8.6/50MG TABLET. PO SCH (08:21)
[2017-03-05] MEDS: CELECOXIB 200 MG CAPSULE. PO SCH ×2 (08:21→20:19)
[2017-03-05] MEDS: HYDROcodone/APAP 7.5/325MG 1 TAB TABLET PO PRN ×3 (08:22→20:19)
--- NOTE | 2017-03-05 12:01 | PDOC ---
PROGRESS NOTES Subjective Subjective Doing well. States pain is well controlled. Objective Vital Signs Vital Signs Date Time Temp Pulse Resp B/P (MAP) Pulse Ox O2 Delivery O2 Flow Rate FiO2 03/05/17 09:20 Room Air 03/05/17 05:50 97.6 68 18 120/65 (83) 94 97.6 03/03/17 11:32 2.0 Physical Exam Postoperative dressing, Hemovac drain, and pain catheter have been removed. Dressing dry. Prineo mesh intact with ABD and knee net. Calf soft and nontender with a negative Raji's sign. Good dorsiflexion and plantarflexion with no evidence of neurovascular injury. Peripheral pulses and light touch sensation intact. Labs Laboratory Tests Test 03/04/17 06:12 03/05/17 04:48 Hemoglobin 13.1 g/dL (13.0-17.5) 11.9 g/dL (13.0-17.5) Hematocrit 38.6 % (39.0-53.0) 35.4 % (39.0-53.0) Mean Corpuscular Hemoglobin Concent 34 g/dL (31-37) 34 g/dL (31-37) Laboratory Tests Test 03/05/17 04:48 Hemoglobin 11.9 g/dL (13.0-17.5) Hematocrit 35.4 % (39.0-53.0) Mean Corpuscular Hemoglobin Concent 34 g/dL (31-37) Assessment Assessment POD #2 left TKA Problems: Plan Plan of Care Continue POC including therapy and DVT ppx. Plan for discharge to home tomorrow afternoon. ABDIAZIZ NUNEZ Mar 05, 2017 12:01
--- NOTE | 2017-03-05 16:04 | PATHOLOGY ---
PATHOLOGY REPORT * * * * * * * * FINAL DIAGNOSIS: Segments of bone and soft tissue, left total knee arthroplasty: - Advanced degenerative arthritis. (JPM:; 03/05/2017) REPORT ELECTRONICALLY SIGNED BY: Masoud Carlos M.D. DATE/TIME: 03/05/2017 16:04 * * * * * * * * GROSS PATHOLOGY: Received in formalin labeled "Humza Almazan, left knee bone and tissue," are multiple segments of bone, including tibial plateau, measuring 10.5 x 9.7 x 3.2 cm in aggregate dimensions admixed with soft tissue; meniscus is present. The specimen shows focal eburnation of the articular surfaces. Physical Therapist Aide sections of bone and soft tissue are submitted in cassette A1, following decalcification. (CAA; 03/04/2017) INITIAL CPT CODE(S): A; 50501, 26515 Professional services [place] [facility] [place] [address] Technical services performed by [facility] at [address] [place] [address]. SPECIMEN(S) RECEIVED: A.Left knee bone and tissue CLINICAL HISTORY: Primary osteoarthritis left knee PATIENT: HUMZA ALMAZAN /AGE: 10 1945 (Age: 72) PATIENT #: [id number] ALT CASE #: SPECIMEN COLLECTION DATE: 03/03/2017 SPECIMEN RECEIVED DATE: 03/03/2017 [facility] - [address] [place] [address] - PHONE: [phone] * * * END OF REPORT * * *
[2017-03-05 17:39] VITALS: BP 145/69
[2017-03-05] MEDS: TAMSULOSIN 0.4 MG CAP.ER.24H. PO SCH (20:19)
[2017-03-06 06:28] VITALS: BP 128/65
[2017-03-06] MEDS: CELECOXIB 200 MG CAPSULE. PO SCH (07:56)
[2017-03-06] MEDS: MULTIVITAMIN with MINERAL TABLET. PO SCH (07:57)
[2017-03-06] MEDS: FERROUS SULFATE 325 MG TABLET. PO SCH (07:57)
[2017-03-06] MEDS: ASPIRIN ENTERIC COATED 325 MG TABLET.DR. PO SCH (07:57)
[2017-03-06] MEDS: SENNOSIDES/DOCUSATE 8.6/50MG TABLET. PO SCH (07:57)
--- NOTE | 2017-03-06 10:46 | PDOC ---
PROGRESS NOTES Subjective Subjective Doing well. Planning for discharge later today after PT. Objective Vital Signs Vital Signs Date Time Temp Pulse Resp B/P (MAP) Pulse Ox O2 Delivery O2 Flow Rate FiO2 03/06/17 06:28 97.6 87 20 128/65 (86) 95 Room Air 97.6 03/03/17 11:32 2.0 Physical Exam Expected swelling. Prineo dressing intact and dry. Calf soft and nontender. Negative Homans. Good AROM ankle. Peripheral pulses and light touch sensation intact. Labs Laboratory Tests Test 03/05/17 04:48 Hemoglobin 11.9 g/dL (13.0-17.5) Hematocrit 35.4 % (39.0-53.0) Mean Corpuscular Hemoglobin Concent 34 g/dL (31-37) Assessment Assessment POD #3 TKA Problems: Plan Plan of Care Discharge later today, to home. Continue DVT prophylaxis and physical therapy. F/U 10-14 days. ABDIAZIZ NUNEZ Mar 06, 2017 10:46
--- NOTE | 2017-03-06 10:50 | PDOC3 ---
Discharge Summary Visit Information Date of Admission: Mar 03, 2017 Date of Discharge: Mar 06, 2017 Admitting Diagnosis: left knee osteoarthritis pain Brief Hospital Course Allergies Allergies Coded Allergies Type Severity Reaction Last Updated Verified No Known Drug Allergies 03/03/17 No Vital Signs Vital Signs Date Time Temp Pulse Resp B/P (MAP) Pulse Ox O2 Delivery O2 Flow Rate FiO2 03/06/17 06:28 97.6 87 20 128/65 (86) 95 Room Air 97.6 Lab Results Laboratory Tests Test 03/05/17 04:48 Hemoglobin 11.9 g/dL (13.0-17.5) Hematocrit 35.4 % (39.0-53.0) Mean Corpuscular Hemoglobin Concent 34 g/dL (31-37) Brief Hospital Course 72 year old who presented with left knee osteoarthritis, for elective total knee arthroplasty. The patient underwent left total knee arthroplasty under general anesthesia the day of admission. Perioperative antibiotics and DVT prophylaxis were used. Postoperatively physical therapy and case management were consulted. The patient progressed and is stable for discharge. Discharge Information Condition at Discharge: Stable Follow Up: Weeks (2) Disposition/Orders: D/C to Home Scheduled Bee Pollen (Bee Pollen), 550 MG PO DAILY, (Reported) Ginkgo Biloba Strawn Extract (Ginkgo Biloba), 30 MG PO DAILY, (Reported) Patient Instructions Patient Instructions Patient Instructions Continue to WBAT with walker. Keep dressing dry and intact. F/U with [facility] in 10-14 days. Call for appointment. Physical therapy for TKA. Continue DVT prophylaxis with aspirin 325mg twice daily. ABDIAZIZ NUNEZ Mar 06, 2017 10:50
[2017-03-06 11:08] LABS: HEMATOCRIT 36.7 % (39.0-53.0); HEMOGLOBIN 12.1 g/dL (13.0-17.5)
[2017-03-06 12:52] VITALS: BP 124/64
== END 2017-03-06 14:36 | disposition home or self-care (01) | DRG 470 ==
LOC: OPSVCIP 05:38 → 4 SOUTHEST 10:53
PROVIDERS: ADMIT Orthopaedic Surgery; ATTEND Orthopaedic Surgery
PROC: 0SRD0J9 Replacement of Left Knee Joint with Synthetic Substitute, Cemented, Open Approach (ICD-10-PCS; principal; 2017-03-03 07:10)
DX: M17.12 Unilateral primary osteoarthritis, left knee (principal); Z96.651 Presence of right artificial knee joint; Z87.891 Personal history of nicotine dependence; Z83.3 Family history of diabetes mellitus; Z80.9 Family history of malignant neoplasm, unspecified; Z79.899 Other long term (current) drug therapy
CPT/HCPCS: 36415; 73560; 85014; 85018; 85610; 86850; 86900; 86901; 88305; 88311; C1713; J0171; J0690; J1100; J1885; J2250; J2270; J2405; J2704; J2795; J3010; J3370; J3490; J7030; J7120; S0028; 97116; 97150; 97530; C1769; J2001

== ENCOUNTER → 2017-08-06 | Outpatient (CLI) | payer OTHER | END | disposition home or self-care (01) | LOC: PETSC 07:26 | DX: C83.30 Diffuse large B-cell lymphoma, unspecified site (principal); K57.30 Diverticulosis of large intestine without perforation or abscess without bleeding; K40.90 Unilateral inguinal hernia, without obstruction or gangrene, not specified as recurrent | CPT/HCPCS: 78815; A9552 ==

== ENCOUNTER → 2021-02-21 | Outpatient (CLI) | payer MEDICARE ==
[~2021-02-21] MED LIST changes: -ASCO500T2 PO; +ASCO500T4 PO; -FERR-26 PO; +FERR325T14 PO; +HYDR-3164 PO; -HYDR-971 PO; -OXYC-323 PO; +OXYC1TAB15 PO; +WARF1TAB2 PO; -WARF1TAB74 PO
[2021-02-21] MEDS: IOHEXOL 300 MG/ML 100ML VIAL. IV ONE (13:25)
--- NOTE | 2021-02-21 14:29 | KCIC ---
PQRS Compliance Statement: One or more of the following individualized dose reduction techniques were utilized for this examinat ion: 1. Automated exposure control 2. Adjustment of the mA and/or kV according to patient size 3. Use of iterative reconstruction technique CT NECK SOFT TISSUE WITH IV CONTRAST 02/21/2021 12:50 PM Indication: Mass in right submandibular gland. History of B-cell lymphoma COMPARISON: PET/CT 08/06/2017 TECHNIQUE: Multiple axial CT images of the neck were obtained after the intravenous administration of nonionic contrast. Coronal and sagittal reformats are provided. FINDINGS: There is mild cerebellar atrophy. No suspicious enhancement involving the visualized portions of the brain parenchyma and posterior fossa. Right lens replacement noted. Mild mucosal thickening of the ri ght maxillary sinus. Parotid glands are normal in appearance. Account [employer] Analyst space is intact. There is at rophy of the submandibular glands. There is a right submandibular lymph node with central low attenua tion suggestive of necrosis or cystic change. Lymph node measures 2.5 x 1.9 cm (series 2, image 35). There is an additional level IIIb cervical lymph node identified on the right measuring 1.0 cm (serie s 2, image 42). No internal cystic change identified. Visual is portions of lungs are clear. Thyroid gland is normal in appearance. No supraclavicular lymphadenopathy. Nasopharynx is normal in appearance. Oropharynx is normal. Hypopharynx is intact including the epiglo ttis, piriform sinuses and vallecula. Larynx and trachea are normal in appearance. Laryngeal cartilag es are intact. Oral cavity is normal in appearance. Floor of mouth is normal. Sublingual space appear s intact. Vascular spaces are preserved. Calcified and noncalcified atherosclerotic plaque identified at the carotid bifurcations resulting in less than 50 percent stenosis of the proximal cervical inte rnal carotid arteries bilaterally. No suspicious osseous abnormality is identified. Moderate to advan katy facet arthropathy identified within the cervical spine. Mild to moderate cervical spondylosis. IMPRESSION: There is a right submandibular lymph node with necrosis or cystic change measuring 2.5 x 1.9 cm. Fin dings are suspicious for metastatic disease or lymphoma involvement. Correlate with any recent locali zed infection as consideration could be given for an inflammatory process. Additional level III cervical lymph node may be reactive measuring 10 mm without internal cystic hallman ge or necrosis. Electronically signed by: Chelsea Richmond MD (02/21/2021 2:27 PM) [id number]
== END ==
LOC: KCIC CT 12:43
PROVIDERS: ATTEND Otolaryngology
DX: R22.0 Localized swelling, mass and lump, head (principal); G31.9 Degenerative disease of nervous system, unspecified; J32.0 Chronic maxillary sinusitis; K11.0 Atrophy of salivary gland; I65.23 Occlusion and stenosis of bilateral carotid arteries; M47.812 Spondylosis without myelopathy or radiculopathy, cervical region; M48.8X2 Other specified spondylopathies, cervical region
CPT/HCPCS: 70491; 82565; Q9967